=== PATIENT | male | born 1995 | race Caucasian/White ===

== ENCOUNTER 2017-08-23 13:20 | Emergency (ER) | payer BC ==
[2017-08-23] MEDS ORDERED: predniSONE TAB* 20 MG PO ONE (14:02)
[2017-08-23] MEDS ORDERED: Cephalexin CAP* 500 MG PO ONE (14:03)
--- NOTE | 2017-08-23 14:10 | UC ---
Throat Pain/Nasal Jon HPI - HPI Summary HPI Summary: 22 yo male with a 2 day hx of sore throat no n/v some myalgias states that 2 mos ago he had an "antibiotic resistant strep" know exposure to strep has had mono - History of Current Complaint Chief Complaint: UCRespiratory Stated Complaint: sore throat Time Seen by Provider: 08/23/17 13:56 Hx Obtained From: Patient Onset/Duration: Gradual Onset, Lasting Days Severity: Moderate Pain Intensity: 6 Pain Scale Used: 0-10 Numeric Associated Signs & Symptoms: Positive: Negative, Fever - Epiglottits Risk Factors Epiglottis Risk Factors: Negative - Allergies/Home Medications Allergies/Adverse Reactions: Allergies Allergy/AdvReac Type Severity Reaction Status Date / Time No Known Allergies Allergy Verified 08/23/17 13:51 Home Medications: Home Medications Fluticasone NASAL SPRAY 50MCG* [Flonase NASAL SPRAY 50MCG*] 2 spray BOTH NARES DAILY 08/23/17 [History Confirmed 08/23/17] PMH/Surg Hx/FS Hx/Imm Hx Previously Healthy: Yes - Surgical History Surgical History: None - Family History Known Family History: Positive: Hypertension - Social History Alcohol Use: None Substance Use Type: None Smoking Status (MU): Never Smoked Tobacco Have You Smoked in the Last Year: No - Immunization History Most Recent Influenza Vaccination: not this year Most Recent Tetanus Shot: UTD Most Recent Pneumonia Vaccination: no Review of Systems Constitutional: Fever, Chills Skin: Negative Eyes: Negative ENT: Sore Throat Respiratory: Negative Cardiovascular: Negative Gastrointestinal: Negative Genitourinary: Negative Motor: Negative Neurovascular: Negative Musculoskeletal: Negative Neurological: Negative Psychological: Negative Is Patient Immunocompromised?: No All Other Systems Reviewed And Are Negative: Yes Physical Exam Triage Information Reviewed: Yes Appearance: Well-Appearing, No Pain Distress, Well-Nourished Vital Signs: Initial Vital Signs Temp 99.7 F 08/23/17 13:44 Pulse 93 08/23/17 13:44 Resp 18 08/23/17 13:44 BP 113/58 08/23/17 13:44 Pulse Ox 98 08/23/17 13:44 Vital Signs Reviewed: Yes Eyes: Positive: Conjunctiva Clear ENT: Positive: Hearing grossly normal, Tonsillar swelling, Tonsillar exudate Dental Exam: Normal Neck: Positive: Supple, Enlarged Nodes @ - ant cerv Respiratory: Positive: Lungs clear, Normal breath sounds, No respiratory distress, No accessory muscle use Cardiovascular: Positive: RRR, No Murmur Abdomen Description: Positive: Nontender, No Organomegaly, Soft. Negative: CVA Tenderness (R), CVA Tenderness (L) Musculoskeletal: Positive: ROM Intact, No Edema Neurological: Positive: Alert Psychological Exam: Normal Skin Exam: Normal Throat Pain/Nasal Course/Dx - Differential Dx/Diagnosis Provider Diagnoses: acute exudative tonsillitis Discharge - Discharge Plan Condition: Stable Disposition: HOME Prescriptions: Cephalexin CAP* [Keflex CAP*] 500 mg PO QID #19 cap Prednisone 60 mg PO DAILY #6 tab Patient Education Materials: Tonsillitis (ED) Referrals: Molina GONZALES,[place] [Primary Care Provider] - If Needed Additional Instructions: rest fluids recheck for worsening symptoms recheck in 2-3 days if not better
--- NOTE | 2017-08-26 17:00 | UC ---
Progress - Progress Note Progress Note: Pt with 3+ group A strep on cephalexin no change [facility] 08/26/17 2781
== END 2017-08-23 14:24 | disposition home or self-care (01) ==
LOC: UCEAST 13:20
DX: J03.90 Acute tonsillitis, unspecified (principal)
CPT/HCPCS: 87070; 99212; A9270-GY; G0463; J7512